=== PATIENT | male | born 2000 | race Caucasian/White ===

== ENCOUNTER 2023-09-20 23:55 | Emergency (ER) | payer OTHER ==
[~2023-09-20] VITALS: Ht 177.8 cm; Wt 90.7 kg
[2023-09-21 00:12] VITALS: BP 135/78; TEMP 98.7
[2023-09-21] MEDS ORDERED: IBUPROFEN 600 MG TABLET ONE (00:28)
[2023-09-21] MEDS: IBUPROFEN 600 MG TABLET PO ONE (00:29)
[2023-09-21 00:31] VITALS: O2SAT 98
== END 2023-09-21 00:31 | disposition home or self-care (01) ==
LOC: ER 23:58
DX: B34.9 Viral infection, unspecified (principal); Z20.822 Contact with and (suspected) exposure to COVID-19

== ENCOUNTER 2023-10-03 19:45 | Emergency (ER) | payer OTHER ==
[~2023-10-03] VITALS: Ht 172.7 cm; Wt 74.8 kg
[2023-10-03 20:21] VITALS: BP 138/75; TEMP 98.5
[2023-10-03] MEDS ORDERED: LIDOCAINE 5% (PATCH) 1 EA PATCH TP ONE (21:03)
[2023-10-03] MEDS ORDERED: ACETAMINOPHEN ES 500 MG TABLET ONE (21:03)
[2023-10-03] MEDS: LIDOCAINE 5% (PATCH) 1 EA PATCH TP ONE (21:08)
[2023-10-03] MEDS: ACETAMINOPHEN ES 500 MG TABLET PO ONE (21:08)
[2023-10-03 21:38] VITALS: O2SAT 99
== END 2023-10-03 21:38 | disposition home or self-care (01) ==
LOC: ER 19:48
DX: M54.12 Radiculopathy, cervical region (principal); M25.512 Pain in left shoulder

== ENCOUNTER → 2024-07-06 | Emergency (ER) | payer OTHER ==
[~2024-07-06] VITALS: Ht 177.8 cm; Wt 88.9 kg
[~2024-07-06] MED LIST: CYCLOBENZAPRINE 10 MG TABLET ONE; IBUPROFEN 400 MG TABLET ONE
[2024-07-06] MEDS: CYCLOBENZAPRINE 10 MG TABLET PO ONE (09:19)
[2024-07-06] MEDS: IBUPROFEN 400 MG TABLET PO ONE (09:19)
[2024-07-06 12:15] VITALS: BP 125/78; TEMP 98.1; O2SAT 100
== END | disposition home or self-care (01) ==
LOC: ER 08:53
DX: Z04.2 Encounter for examination and observation following work accident (principal); M25.512 Pain in left shoulder; M54.50 Low back pain, unspecified; M79.605 Pain in left leg; V23.49XA Other motorcycle driver injured in collision with car, pick-up truck or van in traffic accident, initial encounter; Y93.89 Activity, other specified; Y92.480 Sidewalk as the place of occurrence of the external cause; Y99.8 Other external cause status
CPT/HCPCS: 72110-TC; 73030-TC; 73590-TC